=== PATIENT | male | born 1965 | race Caucasian/White ===

== ENCOUNTER 2018-04-29 15:00 | Emergency (ER) | payer OTHER ==
[2018-04-29 15:12] VITALS: BP 115/83; PULSE 100; RESP 18; TEMP 98.8
--- NOTE | 2018-04-29 15:43 | ED ---
Upper Extremity HPI <Demarcus Guardado - Last Filed: 04/29/18 15:44> - General Source: patient, RN notes reviewed, old records reviewed Mode of arrival: ambulatory Limitations: no limitations <Nancie Whitmore - Last Filed: 04/29/18 15:57> - General Chief Complaint: Extremity Injury, Upper Stated Complaint: circulation problem/fingers Time Seen by Provider: 04/29/18 15:19 - History of Present Illness Initial Comments: is 52-year-old male presents for evaluation of left hand fourth and fifth digit extremity discomfort. Patient reports that he feels like his fourth and fifth finger are slightly cyanotic. Patient states that he has been having these persistent symptoms for the past 2 days. He reports pain with palpation over his pinky. Patient states that he did do a lot of work on his house and was using a hammer and drill last week. He states his symptoms seem a started after doing that. Patient is concerned because he is a diabetic was concerned about losing his years. Patient states that he has no pain with range of motion of the fingers or wrist. He denies any shoulder pain. Denies any chest pain or shortness of breath. (Nancie Whitmore) - Related Data Home Medications Medication Instructions Recorded Confirmed Ibuprofen 800 mg PO Q6H PRN 04/29/18 04/29/18 Insulin Detemir [Levemir Flextouch] 80 unit SQ HS 04/29/18 04/29/18 Lisinopril [Zestril] 10 mg PO DAILY 04/29/18 04/29/18 glipiZIDE [Glucotrol] 10 mg PO TID 04/29/18 04/29/18 metFORMIN HCL [Glucophage] 1,000 mg PO BID 04/29/18 04/29/18 Previous Rx's Medication Instructions Recorded Clopidogrel [Plavix] 75 mg PO DAILY #7 tablet 04/29/18 Ibuprofen 800 mg PO TID #20 tablet 04/29/18 Allergies Allergy/AdvReac Type Severity Reaction Status Date / Time No Known Allergies Allergy Verified 04/29/18 15:40 Review of Systems ROS Other: All systems not noted in ROS Statement are negative. <Demarcus Guardado - Last Filed: 04/29/18 15:44> ROS Other: All systems not noted in ROS Statement are negative. <Nancie Whitmore - Last Filed: 04/29/18 15:57> ROS Statement: Those systems with pertinent positive or pertinent negative responses have been documented in the HPI. Past Medical History Past Medical History: Diabetes Mellitus, Hypertension History of Any Multi-Drug Resistant Organisms: None Reported Past Surgical History: Tonsillectomy Additional Past Surgical History / Comment(s): bilateral knee scope Past Psychological History: No Psychological Hx Reported Smoking Status: Current every day smoker Past Alcohol Use History: None Reported Past Drug Use History: None Reported <Nancie Whitmore - Last Filed: 04/29/18 15:57> General Exam <Demarcus Guardado - Last Filed: 04/29/18 15:44> Limitations: no limitations General appearance: alert, in no apparent distress Head exam: Present: atraumatic, normocephalic, normal inspection Eye exam: Present: normal appearance, PERRL, EOMI. Absent: scleral icterus, conjunctival injection, periorbital swelling ENT exam: Present: normal exam, mucous membranes moist Neck exam: Present: normal inspection. Absent: tenderness, meningismus, lymphadenopathy Respiratory exam: Present: normal lung sounds bilaterally. Absent: respiratory distress, wheezes, rales, rhonchi, stridor Cardiovascular Exam: Present: regular rate, normal rhythm, normal heart sounds. Absent: systolic murmur, diastolic murmur, rubs, gallop, clicks GI/Abdominal exam: Present: soft, normal bowel sounds. Absent: distended, tenderness, guarding, rebound, rigid Extremities exam: Present: normal inspection, full ROM, normal capillary refill. Absent: tenderness, pedal edema, joint swelling, calf tenderness Left Forearm Wrist exam: Present: normal inspection, full ROM Hand Wrist exam: Present: full ROM (Patient has full range motion of rigors but has tender palpation over the fourth and fifth digit.). Absent: normal inspection (Patient's fifth and ring finger are slightly cyanotic compared to the rest of the hand. Tender palpation over the distal tip of the fifth finger. ) Neuro motor exam: Present: wrist extension intact, thumb opposition intact, thumb IP flexion intact, thumb adduction intact, fingers 2-5 abduction intact Vascular: Present: radial pulse, ulnar pulse (Radial pulse and ulnar pulse are 2 +.). Absent: normal capillary refill (slight delay to capillary refill to the fifth and fourth digit.), pulse deficit radial art, pulse deficit ulnar art Back exam: Present: normal inspection Neurological exam: Present: alert, oriented X3, CN II-XII intact <Nancie Whitmore - Last Filed: 04/29/18 15:57> - General Exam Comments Initial Comments: 52-year-old male. Alert and oriented. No significant distress. (Nancie Whitmore) Vital Signs 04/29/18 15:09 Temperature 98.8 F Pulse Rate 100 Respiratory 18 Rate Blood Pressure 115/83 O2 Sat by Pulse 97 Oximetry Medical Decision Making <Demarcus Guardado - Last Filed: 04/29/18 15:44> <Nancie Whitmore - Last Filed: 04/29/18 15:57> - Medical Decision Making Patient reevaluated by myself, Dr. Guardado. Patient complains of discomfort of his right small finger and somewhat the ring finger since using several tools for several days. Symptoms have now been present for 4 days. Discomfort is mostly the small finger. Patient has noticed some purplish discoloration that has been waxing and waning. Discomfort does increase with movement. No direct trauma to the region. On exam there may be some trace amount of color change that is difficult to visualize. There is some discomfort diffusely to the small finger, none to the ring finger. Full range of motion. Good strength. Radial and ulnar pulses are easily palpated and intact. Case was discussed in detail with Dr. 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 He states he will follow up with patient at 10 AM tomorrow. He does recommend a dose of Plavix and anti-inflammatories as needed. Patient is advised to discontinue smoking. (Demarcus Guardado) Patient remembers as prescribed and chief complaint of fourth digit pain. He is slight delayed capillary refill to the fourth and fifth digit. Patient was working on his house doing using several tools for the past few days. We discussed case with Dr. Tony who believes Patient has had both feet and hands were syndrome. He wants to start the Patient on a temperature medication and Plavix. He will see the Patient tomorrow at 10 AM. We did discuss smoking cessation for 5 minutes with the Patient. (Nancie Whitmore) Disposition <Demarcus Guardado - Last Filed: 04/29/18 15:44> Is patient prescribed a controlled substance at d/c from ED?: No Time of Disposition: 15:56 <MyrandaNancie - Last Filed: 04/29/18 15:57> Clinical Impression: Cyanosis of fingertip Disposition: HOME SELF-CARE Condition: Good Additional Instructions: Patient has a follow-up with Dr. Tony tomorrow at 10 AM. Take the blood thinner and anti-inflammatory medicine as prescribed. Prescriptions: Clopidogrel [Plavix] 75 mg PO DAILY #7 tablet Ibuprofen 800 mg PO TID #20 tablet Referrals: Curtis Kelly DO [Primary Care Provider] - 1-2 days Lenny Tony MD [STAFF PHYSICIAN] - 1-2 days
[2018-04-29] MEDS ORDERED: KETOROLAC 60 MG/2 ML VIAL IM STA (15:49)
[2018-04-29] MEDS ORDERED: CLOPIDOGREL 75 MG TAB PO STA (15:49)
== END 2018-04-29 16:29 | disposition home or self-care (01) ==
LOC: EC 15:00
DX: R23.0 Cyanosis (principal); E11.9 Type 2 diabetes mellitus without complications; I10 Essential (primary) hypertension; F17.200 Nicotine dependence, unspecified, uncomplicated; Z79.4 Long term (current) use of insulin; Z79.899 Other long term (current) drug therapy; Z71.6 Tobacco abuse counseling
CPT/HCPCS: 99283; 99406; 96372; J1885

== ENCOUNTER 2018-05-25 22:16 | Emergency (ER) | payer OTHER ==
[2018-05-25 22:28] VITALS: RESP 20
[2018-05-25] MEDS ORDERED: ACETAMINOPHEN TAB 325 MG TAB PO STA (22:39)
[2018-05-25] MEDS ORDERED: INSULIN ASPART 100 UNIT/ML 1 ML 10 ML VIAL SQ ONE (22:40)
--- NOTE | 2018-05-25 22:48 | ED ---
Skin/Abscess/FB HPI - General Source: patient Mode of arrival: ambulatory Limitations: no limitations <Latisha Valero - Last Filed: 05/26/18 01:42> <Ramona Shetty - Last Filed: 05/26/18 03:06> - General Chief complaint: Skin/Abscess/Foreign Body Stated complaint: left am swellimg Time Seen by Provider: 05/25/18 22:34 - History of Present Illness Initial comments: 52-year-old male patient presents to the emergency department today for evaluation of swelling and redness to the left forearm and elbow. Patient states that he did have an abscess to the left forearm. States that the abscess did drain, but he started to have redness around the area that has gotten worse. Patient states that today he noticed that the redness and swelling was spreading to involve the elbow. Patient states his evening he noticed that his hand was starting to swell so he presented here for further evaluation. He denies any significant pain to the arm. Patient states that he also does have history of diabetes and did have a change to his insulin about one week ago. Patient states that he does not check his blood sugar as directed and is unsure how his sugars have been running. Patient denies any nausea, vomiting, chest pain, or shortness of breath. He denies any fever or chills. Denies difficulty with range of motion of the elbow or wrist. Patient denies any recent rash, diarrhea, constipation, back pain, numbness, tingling, dizziness, weakness, hematuria, dysuria, urinary urgency, urinary frequency, headache, visual changes , or any other complaints. Denies any alcohol use or history of IVDA. (Latisha Valero) - Related Data Home Medications Medication Instructions Recorded Confirmed Ibuprofen 800 mg PO Q6H PRN 04/29/18 04/29/18 Insulin Detemir [Levemir Flextouch] 80 unit SQ HS 04/29/18 04/29/18 Lisinopril [Zestril] 10 mg PO DAILY 04/29/18 04/29/18 glipiZIDE [Glucotrol] 10 mg PO TID 04/29/18 04/29/18 metFORMIN HCL [Glucophage] 1,000 mg PO BID 04/29/18 04/29/18 Previous Rx's Medication Instructions Recorded Clopidogrel [Plavix] 75 mg PO DAILY #7 tablet 04/29/18 Ibuprofen 800 mg PO TID #20 tablet 04/29/18 Cephalexin [Keflex] 500 mg PO Q6H #40 cap 05/26/18 Sulfamethoxazole/Trimethoprim 1 each PO BID #20 tablet 05/26/18 [Bactrim DS 800-160 mg] Allergies Allergy/AdvReac Type Severity Reaction Status Date / Time No Known Allergies Allergy Verified 05/25/18 22:28 Review of Systems ROS Other: All systems not noted in ROS Statement are negative. <Latisha Valero - Last Filed: 05/26/18 01:42> ROS Other: All systems not noted in ROS Statement are negative. <Ramona Shetty - Last Filed: 05/26/18 03:06> ROS Statement: Those systems with pertinent positive or pertinent negative responses have been documented in the HPI. Past Medical History Past Medical History: Diabetes Mellitus, Hypertension History of Any Multi-Drug Resistant Organisms: None Reported Past Surgical History: Tonsillectomy Additional Past Surgical History / Comment(s): bilateral knee scope Past Psychological History: No Psychological Hx Reported Smoking Status: Current every day smoker Past Alcohol Use History: None Reported Past Drug Use History: None Reported <Latisha Valero - Last Filed: 05/26/18 01:42> General Exam Limitations: no limitations General appearance: alert, in no apparent distress, other (This is a well- developed, well-nourished adult male patient in no acute distress. Vital signs upon presentation are temperature 99.1F, pulse 106, respirations 20, blood pressure 135/84, pulse ox 96% on room air.) Eye exam: Present: normal appearance, PERRL, EOMI. Absent: scleral icterus, conjunctival injection, periorbital swelling ENT exam: Present: normal exam, normal oropharynx, mucous membranes moist Respiratory exam: Present: normal lung sounds bilaterally. Absent: respiratory distress, wheezes, rales, rhonchi, stridor Cardiovascular Exam: Present: regular rate, normal rhythm, normal heart sounds. Absent: systolic murmur, diastolic murmur, rubs, gallop, clicks GI/Abdominal exam: Present: soft, normal bowel sounds. Absent: distended, tenderness, guarding, rebound, rigid Extremities exam: Present: full ROM, normal capillary refill, other (Patient has erythema and swelling to the ulnar aspect of the left forearm. Patient has erythema and swelling over the flexor surface of the left elbow. Patient does have evidence of healing abscess to the left lateral forearm, no fluctuance, mild induration. Full range of motion present. Remainder of skin is pink, warm , and dry. Cap refills less than 3 seconds. Radial pulses 2+ and equal bilaterally.). Absent: normal inspection, tenderness, pedal edema, joint swelling, calf tenderness Neurological exam: Present: alert, oriented X3, CN II-XII intact Psychiatric exam: Present: normal affect, normal mood Skin exam: Present: warm, dry, intact, normal color. Absent: rash <Latisha Valero - Last Filed: 05/26/18 01:42> Vital Signs 05/25/18 05/26/18 05/26/18 22:25 00:07 02:03 Temperature 99.1 F 98.8 F 98 F Pulse Rate 106 H 99 87 Respiratory 20 20 20 Rate Blood Pressure 135/84 133/83 144/74 O2 Sat by Pulse 96 97 98 Oximetry Medical Decision Making - Lab Data Result diagrams: 05/25/18 22:45 05/25/18 22:45 <Latisha Valero - Last Filed: 05/26/18 01:42> - Lab Data Result diagrams: 05/25/18 22:45 05/25/18 22:45 <Ramona Shetty - Last Filed: 05/26/18 03:06> - Medical Decision Making 52-year-old male patient presents the emergency department today for complaints of left arm redness and swelling. Patient states that it started around the site of an abscess that has since drained. Physical examination did reveal swelling on the ulnar aspect of the forearm and up into the elbow. Patient has no pain to the arm, no difficulty with range of motion. Patient is afebrile. Blood sugar elevated at 546 upon arrival. Labs reviewed and negative, white blood cell count within normal range. Patient did receive 2 subcutaneous doses of insulin here in the department, blood sugar did come down to 322. I did recommend remaining until blood sugar was under control, patient refused stating that his significant other had to get to work in the morning. States that his blood sugar generally runs around 250-300 normally. States that he did start a new medication from his doctor 2 days ago for this. He will be started on Keflex and Bactrim for treatment of cellulitis and abscess. He is instructed to follow-up with his primary care physician for recheck in 1-2 days. Return parameters were discussed in detail. He verbalizes understanding and agrees with this plan. (Latisha Valero) I was available for consultation in the emergency department. The history and physical exam were done by the midlevel provider. I was consulted for this patient's care. I reviewed the case with the midlevel provider and based on their presentation of the patient, I agree with the assessment, medical decision making and plan of care as documented. (Ramona Shetty) - Lab Data Lab Results 05/25/18 05/25/18 05/25/18 Range/Units 22:35 22:45 22:45 WBC 7.7 (3.8-10.6) k/uL RBC 4.47 (4.30-5.90) m/uL Hgb 14.2 (13.0-17.5) gm/dL Hct 42.8 (39.0-53.0) % MCV 95.8 (80.0-100.0) fL MCH 31.8 (25.0-35.0) pg MCHC 33.2 (31.0-37.0) g/dL RDW 12.7 (11.5-15.5) % Plt Count 172 (150-450) k/uL Neutrophils % 67 % Lymphocytes % 26 % Monocytes % 4 % Eosinophils % 2 % Basophils % 1 % Neutrophils # 5.1 (1.3-7.7) k/uL Lymphocytes # 2.0 (1.0-4.8) k/uL Monocytes # 0.3 (0-1.0) k/uL Eosinophils # 0.1 (0-0.7) k/uL Basophils # 0.0 (0-0.2) k/uL PT (9.0-12.0) sec INR (<1.2) APTT (22.0-30.0) sec Sodium 134 L (137-145) mmol/L Potassium 4.3 (3.5-5.1) mmol/L Chloride 99 (98-107) mmol/L Carbon Dioxide 28 (22-30) mmol/L Anion Gap 7 mmol/L BUN 16 (9-20) mg/dL Creatinine 0.70 (0.66-1.25) mg/dL Est GFR (CKD-EPI)AfAm >90 (>60 ml/min/1.73 sqM) Est GFR (CKD-EPI)NonAf >90 (>60 ml/min/1.73 sqM) Glucose 546 H* (74-99) mg/dL POC Glucose (mg/dL) 507 H (75-99) mg/dL POC Glu [employer] Agent ID Ricky Franklin Plasma Lactic Acid Connor (0.7-2.0) mmol/L Calcium 9.2 (8.4-10.2) mg/dL Total Bilirubin 0.4 (0.2-1.3) mg/dL AST 15 L (17-59) U/L ALT 32 (21-72) U/L Alkaline Phosphatase 109 (38-126) U/L Total Protein 6.7 (6.3-8.2) g/dL Albumin 3.6 (3.5-5.0) g/dL Acetone, Qual Negative (Negative) 05/25/18 05/25/18 05/26/18 Range/Units 22:45 22:45 00:05 WBC (3.8-10.6) k/uL RBC (4.30-5.90) m/uL Hgb (13.0-17.5) gm/dL Hct (39.0-53.0) % MCV (80.0-100.0) fL MCH (25.0-35.0) pg MCHC (31.0-37.0) g/dL RDW (11.5-15.5) % Plt Count (150-450) k/uL Neutrophils % % Lymphocytes % % Monocytes % % Eosinophils % % Basophils % % Neutrophils # (1.3-7.7) k/uL Lymphocytes # (1.0-4.8) k/uL Monocytes # (0-1.0) k/uL Eosinophils # (0-0.7) k/uL Basophils # (0-0.2) k/uL PT 9.3 (9.0-12.0) sec INR 0.9 (<1.2) APTT 22.3 (22.0-30.0) sec Sodium (137-145) mmol/L Potassium (3.5-5.1) mmol/L Chloride (98-107) mmol/L Carbon Dioxide (22-30) mmol/L Anion Gap mmol/L BUN (9-20) mg/dL Creatinine (0.66-1.25) mg/dL Est GFR (CKD-EPI)AfAm (>60 ml/min/1.73 sqM) Est GFR (CKD-EPI)NonAf (>60 ml/min/1.73 sqM) Glucose (74-99) mg/dL POC Glucose (mg/dL) 409 H (75-99) mg/dL POC Glu [employer] Agent ID Ricky Franklin Plasma Lactic Acid Connor 1.2 (0.7-2.0) mmol/L Calcium (8.4-10.2) mg/dL Total Bilirubin (0.2-1.3) mg/dL AST (17-59) U/L ALT (21-72) U/L Alkaline Phosphatase (38-126) U/L Total Protein (6.3-8.2) g/dL Albumin (3.5-5.0) g/dL Acetone, Qual (Negative) 05/26/18 05/26/18 Range/Units 01:14 01:41 WBC (3.8-10.6) k/uL RBC (4.30-5.90) m/uL Hgb (13.0-17.5) gm/dL Hct (39.0-53.0) % MCV (80.0-100.0) fL MCH (25.0-35.0) pg MCHC (31.0-37.0) g/dL RDW (11.5-15.5) % Plt Count (150-450) k/uL Neutrophils % % Lymphocytes % % Monocytes % % Eosinophils % % Basophils % % Neutrophils # (1.3-7.7) k/uL Lymphocytes # (1.0-4.8) k/uL Monocytes # (0-1.0) k/uL Eosinophils # (0-0.7) k/uL Basophils # (0-0.2) k/uL PT (9.0-12.0) sec INR (<1.2) APTT (22.0-30.0) sec Sodium (137-145) mmol/L Potassium (3.5-5.1) mmol/L Chloride (98-107) mmol/L Carbon Dioxide (22-30) mmol/L Anion Gap mmol/L BUN (9-20) mg/dL Creatinine (0.66-1.25) mg/dL Est GFR (CKD-EPI)AfAm (>60 ml/min/1.73 sqM) Est GFR (CKD-EPI)NonAf (>60 ml/min/1.73 sqM) Glucose (74-99) mg/dL POC Glucose (mg/dL) 351 H 322 H (75-99) mg/dL POC Glu [employer] Agent ID Violet Donald Matthew Plasma Lactic Acid Connor (0.7-2.0) mmol/L Calcium (8.4-10.2) mg/dL Total Bilirubin (0.2-1.3) mg/dL AST (17-59) U/L ALT (21-72) U/L Alkaline Phosphatase (38-126) U/L Total Protein (6.3-8.2) g/dL Albumin (3.5-5.0) g/dL Acetone, Qual (Negative) Disposition Is patient prescribed a controlled substance at d/c from ED?: No Time of Disposition: 01:32 <Latisha Valero - Last Filed: 05/26/18 01:42> <Ramona Shetty - Last Filed: 05/26/18 03:06> Clinical Impression: Cellulitis of left arm, Hyperglycemia Disposition: HOME SELF-CARE Condition: Good Instructions: Cellulitis (ED), Diabetic Hyperglycemia (ED) Additional Instructions: Complete antibiotics in full. Monitor blood sugars closely. Follow-up with her primary care physician to discuss better management techniques. Return immediately for any new, worsening, or concerning symptoms. Prescriptions: Cephalexin [Keflex] 500 mg PO Q6H #40 cap Sulfamethoxazole/Trimethoprim [Bactrim DS 800-160 mg] 1 each PO BID #20 tablet Referrals: Curtis Kelly DO [Primary Care Provider] - 1-2 days
[2018-05-25 23:03] LABS: Glucose,Whole Blood 507 mg/dL (75-99)
[2018-05-25 23:08] LABS: Basophils % (A) 1 %; Eosinophils # (A) 0.1 k/uL (0-0.7); Eosinophils % (A) 2 %; HCT 42.8 % (39.0-53.0); HGB 14.2 gm/dL (13.0-17.5); Lymphocytes % (A) 26 %; MCH 31.8 pg (25.0-35.0); MCHC 33.2 g/dL (31.0-37.0); MCV 95.8 fL (80.0-100.0); Mean Platelet Volume 7.3; Monocytes # (A) 0.3 k/uL (0-1.0); Monocytes % (A) 4 %; Neutrophils # (A) 5.1 k/uL (1.3-7.7); Neutrophils % (A) 67 %; Platelet Count 172 k/uL (150-450); RBC 4.47 m/uL (4.30-5.90); RDW 12.7 % (11.5-15.5); WBC 7.7 k/uL (3.8-10.6)
[2018-05-25] MEDS: SODIUM CHLORIDE 0.9% 500 ML 500 ML IV SCH (23:09)
[2018-05-25 23:20] LABS: INR 0.9 (<1.2); Partial Thromboplastin Time 22.3 sec (22.0-30.0); Prothrombin Time 9.3 sec (9.0-12.0)
[2018-05-25 23:28] LABS: ALT 32 U/L (21-72); AST 15 U/L (17-59); Albumin 3.6 g/dL (3.5-5.0); Alkaline Phosphatase 109 U/L (38-126); Anion Gap 7 mmol/L; Blood Urea Nitrogen 16 mg/dL (9-20); Calcium 9.2 mg/dL (8.4-10.2); Carbon Dioxide 28 mmol/L (22-30); Chloride 99 mmol/L (98-107); Potassium 4.3 mmol/L (3.5-5.1); Sodium 134 mmol/L (137-145); Total Bilirubin 0.4 mg/dL (0.2-1.3); Total Protein 6.7 g/dL (6.3-8.2)
[2018-05-25 23:39] LABS: Glucose 546 mg/dL (74-99)
[2018-05-26 00:08] LABS: Glucose,Whole Blood 409 mg/dL (75-99)
[2018-05-26] MEDS ORDERED: INSULIN ASPART 100 UNIT/ML 1 ML 10 ML VIAL SQ STA (00:21)
[2018-05-26] MEDS: SODIUM CHLORIDE 0.9% 500 ML 500 ML IV SCH ×2 (00:35)
[2018-05-26] MEDS ORDERED: CEPHALEXIN 500MG STARTER PACK 4 CAP BTL PO STA (01:32)
[2018-05-26] MEDS ORDERED: SULFAMETH-TMP DS STARTER PACK 2 TAB BTL PO STA (01:32)
[2018-05-26 01:41] LABS: Glucose,Whole Blood 351 mg/dL (75-99)
[2018-05-26 01:46] LABS: Glucose,Whole Blood 322 mg/dL (75-99)
[2018-05-26 02:05] VITALS: BP 144/74; PULSE 87; TEMP 98
== END 2018-05-26 02:04 | disposition home or self-care (01) ==
LOC: EC 22:16
DX: L03.114 Cellulitis of left upper limb (principal); E11.65 Type 2 diabetes mellitus with hyperglycemia; I10 Essential (primary) hypertension; F17.200 Nicotine dependence, unspecified, uncomplicated; Z79.4 Long term (current) use of insulin; Z79.899 Other long term (current) drug therapy
CPT/HCPCS: 36415; 80053; 82009; 83605; 85025; 85610; 85730; 87040; 99283

== ENCOUNTER → 2018-12-12 | Outpatient (CLI) | payer OTHER ==
--- NOTE | 2018-12-12 13:27 | US ---
EXAMINATION TYPE: US abdomen complete DATE OF EXAM: 12/12/2018 COMPARISON: NONE CLINICAL HISTORY: R10.84 generalized abdominal pain. Pt states post prandial nausea x 2 months EXAM MEASUREMENTS: Liver Length: 18.6 cm Gallbladder Wall: 0.4 cm CBD: 0.3 cm Spleen: 12.1 cm Right Kidney: 13.6 x 6.2 x 6.9 cm Left Kidney: 12.8 x 6.8 x 6.4 cm Large pt body habitus Pancreas: wnl Liver: Enlarged, heterogeneous, difficult to penetrate Gallbladder: Possible calcified polyp, possible sludge, wall slightly thickened Evidence for sonographic Kinsey's sign: No CBD: wnl Spleen: wnl Right Kidney: wnl Left Kidney: wnl Upper IVC: wnl Abd Aorta: Prox and mid gassed out/ distal wnl Technique in the exam may be limited by patient body habitus. Cortical medullary differentiation is n ormal within the kidneys. IMPRESSION: Correlate for hepatic steatosis, there is likely borderline hepatomegaly. Possible gallbl adder polyp or adherent stone within the gallbladder.
== END | disposition home or self-care (01) ==
LOC: RADUSWWP 10:16
PROVIDERS: ATTEND Family Medicine
DX: R10.84 Generalized abdominal pain (principal)
CPT/HCPCS: 76700

== ENCOUNTER → 2018-12-20 | Outpatient (CLI) | payer OTHER ==
--- NOTE | 2018-12-20 12:49 | NM ---
EXAMINATION TYPE: NM hepatobiliary w EF DATE OF EXAM: 12/20/2018 COMPARISON: NONE INDICATION: Generalized abdominal pain TECHNIQUE: After the intravenous administration of 5.1 mCi Tc 99m Mebrofenin hepatobiliary scintigrap hy is performed. Images were obtained immediately post injection. FINDINGS: There is prompt uptake and excretion of radiotracer by the liver. Extrahepatic ducts are identified at 16 minutes. The gallbladder is visualized within 8 minutes. Small bowel activity is noted within 26 minutes. At one hour 8 ounces of oral ensure plus is given to mimic CCK and gallbladder ejection fraction is c alculated at 73 %, which is in the normal range. (Normal >35% and <80%.). IMPRESSION: 1. Normal hepatobiliary scan
== END | disposition home or self-care (01) ==
LOC: RADNMMAIN 09:10
PROVIDERS: ATTEND Family Medicine
DX: R10.84 Generalized abdominal pain (principal)
CPT/HCPCS: 78226; A9537

== ENCOUNTER 2019-06-01 16:39 | Emergency (ER) | payer OTHER ==
[2019-06-01 16:45] VITALS: BP 155/92; PULSE 98; RESP 119; TEMP 98.4
--- NOTE | 2019-06-01 17:04 | ED ---
Neuro HPI - General Chief Complaint: Neuro Symptoms/Deficit Stated Complaint: facial numbness/head & shoulder pain Time Seen by Provider: 06/01/19 16:48 Source: patient, RN notes reviewed, old records reviewed Mode of arrival: ambulatory Limitations: no limitations - History of Present Illness Is the patient presenting with stroke symptoms?: Yes Last Known Well Date: 05/31/19 Last Known Well Time: 18:00 -: days(s) (Greater than 1) Initial Comments: This is a 53-year-old male the ER for evaluation patient's presented today for evaluation regards to what he is concern for stroke like symptoms with left- sided facial numbness left ear pain and drooling difficulty closing his left eye. Patient has numbness to left-sided his face. Patient does have history of high blood pressure cholesterol diabetes no significant history of stroke, patient does smoke. No history of heart disease. Patient noticed symptoms yesterday, no symptoms of arms or legs left leg right leg right arm left arm are all functioning normally. Patient noticed symptoms again before bed last night exam may be mildly increased and yesterday. He is having some drooling as well. Location: left face History of same: No Place: home Severity: moderate Quality: numb, tingling Improves With: none Worsens With: none On Anticoagulants: No Context: gradual onset Associated Symptoms: denies other symptoms Treatments Prior to Arrival: none - Related Data Home Medications: Home Medications Medication Instructions Recorded Confirmed Lisinopril [Zestril] 10 mg PO DAILY 04/29/18 01/12/19 metFORMIN HCL [Glucophage] 500 mg PO BID 04/29/18 01/12/19 Canagliflozin/Metformin HCl 1 each PO DAILY 01/12/19 01/12/19 [Invokamet 150-1,000 mg Tablet] Dicyclomine [Bentyl] 20 mg PO QID 01/12/19 01/12/19 Glycopyrrolate/Formoterol Fum 2 puff INHALATION DAILY 01/12/19 01/12/19 [Bevespi Aerosphere Inhaler] Insulin Aspart (Niacinamide) 0 unit SQ AC-TID 01/12/19 01/12/19 [Fiasp 100 Unit/ml Flextouch] glipiZIDE [Glucotrol] 5 mg PO AC-SUPPER 01/12/19 01/12/19 glipiZIDE [Glucotrol] 10 mg PO AC-BRKFST 01/12/19 01/12/19 Previous Rx's Medication Instructions Recorded predniSONE 80 mg PO DAILY #28 tab 06/01/19 valACYclovir HCL [Valtrex] 1,000 mg PO Q8HR #21 tab 06/01/19 Allergies/Adverse Reactions: Allergies Allergy/AdvReac Type Severity Reaction Status Date / Time No Known Allergies Allergy Verified 01/12/19 14:23 Review of Systems ROS Statement: Those systems with pertinent positive or pertinent negative responses have been documented in the HPI. ROS Other: All systems not noted in ROS Statement are negative. General Exam - General Exam Comments Initial Comments: Left lower facial paralysis, left forehead paralysis, difficulty closing left eye, left ear pain Limitations: no limitations General appearance: alert, in no apparent distress, anxious Head exam: Present: atraumatic, normocephalic, normal inspection Eye exam: Present: normal appearance, PERRL, EOMI. Absent: scleral icterus, conjunctival injection, periorbital swelling ENT exam: Present: normal exam, mucous membranes moist Neck exam: Present: normal inspection. Absent: tenderness, meningismus, lymphadenopathy Respiratory exam: Present: normal lung sounds bilaterally. Absent: respiratory distress, wheezes, rales, rhonchi, stridor Cardiovascular Exam: Present: normal rhythm, tachycardia, normal heart sounds. Absent: systolic murmur, diastolic murmur, rubs, gallop, clicks GI/Abdominal exam: Present: soft, normal bowel sounds. Absent: distended, tenderness, guarding, rebound, rigid Extremities exam: Present: normal inspection, full ROM, normal capillary refill. Absent: tenderness, pedal edema, joint swelling, calf tenderness Back exam: Present: normal inspection Neurological exam: Present: alert, oriented X3, CN II-XII intact, other (Patient does have symptoms consistent with Garcia's palsy) Psychiatric exam: Present: normal affect, normal mood Skin exam: Present: warm, dry, intact, normal color. Absent: rash Stroke MDM - NIH Stroke Scale 1a. Level of Consciousness: (0) alert 1b. LOC Questions: (0) answers correctly 1c. LOC Commands: (0) performs tasks correctly 2. Best Gaze: (0) normal 3. Visual: (0) no visual loss 4. Facial Palsy: (2) partial paralysis (Left-sided) 5a. Motor Arm Left: (0) no drift 5b. Motor Arm Right: (0) no drift 6a. Motor Leg Left: (0) no drift 6b. Motor Leg Right: (0) no drift 7. Limb Ataxia: (0) absent 8. Sensory: (0) normal 9. Best Language: (0) no aphasia 10. Dysarthria: (0) normal 11. Extinction/Inattention: (0) no abnormality - Thrombolytic Inclusion/Exclusion Thrombolytic Exclusion Criteria: Symptom Onset > 4.5 Hours - Medical Decision Making 53 male the ER presenting with symptoms of classic Garcia's palsy, patient due to significant risk factors for stroke was started on daily aspirin patient understands, will follow-up with primary care tomorrow monitored worsening of symptoms or change of symptoms. Patient started on steroids and antivirals and can be discharged home Past Medical History Past Medical History: Diabetes Mellitus, Deep Vein Thrombosis (DVT), Hypertension Additional Past Medical History / Comment(s): dvt rt calf 1991 History of Any Multi-Drug Resistant Organisms: None Reported Past Surgical History: Orthopedic Surgery, Tonsillectomy Additional Past Surgical History / Comment(s): bilateral knee scope Past Anesthesia/Blood Transfusion Reactions: No Reported Reaction Past Psychological History: No Psychological Hx Reported Smoking Status: Current every day smoker Past Alcohol Use History: None Reported Past Drug Use History: None Reported - Past Family History Father Family Medical History: Cancer Course Vital Signs 06/01/19 16:42 Temperature 98.4 F Pulse Rate 98 Respiratory 119 H Rate Blood Pressure 155/92 O2 Sat by Pulse 97 Oximetry - Reevaluation(s) Reevaluation #1: 06/01/19 17:16 Medical records reviewed Reevaluation #2: 06/01/19 17:16 The patient at length regarding symptoms understand that he is at risk for CVA secondary to underlying medical comorbidities but with symptoms that he has he is presenting with Garcia's palsy will be treated appropriately but will start aspirin until he follows up with primary care tomorrow. Disposition Clinical Impression: Garcia's palsy Disposition: HOME SELF-CARE Condition: Good Instructions (If sedation given, give patient instructions): Garcia Palsy (ED) Prescriptions: predniSONE 80 mg PO DAILY #28 tab valACYclovir HCL [Valtrex] 1,000 mg PO Q8HR #21 tab Is patient prescribed a controlled substance at d/c from ED?: No Referrals: Phillip Zazueta MD [Primary Care Provider] - 1-2 days
[2019-06-01] MEDS ORDERED: valACYclovir HCL 1,000 MG TABLET PO STA (17:09)
[2019-06-01] MEDS ORDERED: DEXAMETHASONE SOD PHOSPHATE 10 MG/ML 1 ML VIAL IM STA (17:09)
== END 2019-06-01 17:30 | disposition home or self-care (01) ==
LOC: EC 16:39
DX: G51.0 Bell's palsy (principal); R00.0 Tachycardia, unspecified; E11.9 Type 2 diabetes mellitus without complications; I10 Essential (primary) hypertension; F17.200 Nicotine dependence, unspecified, uncomplicated; Z79.4 Long term (current) use of insulin; Z79.899 Other long term (current) drug therapy
CPT/HCPCS: 99284; 96372; J1100

== ENCOUNTER → 2023-11-07 | Outpatient (CLI) | payer OTHER ==
--- NOTE | 2023-11-07 12:39 | CT ---
EXAMINATION TYPE: CT chest wo con DATE OF EXAM: 11/07/2023 COMPARISON: None HISTORY: lung nodule CT DLP: [address] of the chest was performed with lung and mediastinal window settings submitted. The la ck of contrast limits evaluation of the vascular, mediastinal and parenchymal structures including th e upper abdomen. LUNGS: The lungs are clear and free of infiltrate. No atelectasis. No pulmonary nodule or mass is de tected. No pleural effusion. Mild scattered subpleural fibrosis. MEDIASTINUM/TOPHER: Thoracic aorta is of normal caliber with limited evaluation given lack of contrast . The heart is not enlarged. No evidence for mediastinal mass. No lymph nodes greater than 1cm. UPPER ABDOMEN: No significant abnormality is seen. OTHER: No significant other abnormality. IMPRESSION: 1. No distinct nodules seen. Mild scattered subpleural fibrosis.
== END | disposition home or self-care (01) ==
LOC: RADCTMAIN 08:39
PROVIDERS: ATTEND Family Medicine
DX: R91.1 Solitary pulmonary nodule (principal)
CPT/HCPCS: 71250